=== PATIENT | male | born 1965 | race Caucasian/White ===

== ENCOUNTER 2019-06-22 10:09 | Outpatient (CLI) | payer OTHER, SELFPAY ==
--- NOTE | 2019-06-22 10:13 | CT_ITS ---
WS: [id number] CT LUNG CANCER SCREENING DLP: 101.1 mGy.cm DIvol: 2.82 mGy CLINICAL INFORMATION SCREENING VISIT: Baseline COMPARISON: None available. FINDINGS Diagnostic quality: Satisfactory Comments: None. Lung Nodules: None. Lungs: Minimal pulmonary hyperexpansion. Small amount of atelectasis adjacent to the lingula. Heart: Normal size. No vascular calcifications. Other findings: Normal size pulmonary artery. Minimal calcification in the aortic arch. No mediastina l adenopathy. Small hiatal hernia. CT/CT lung screening [id number] IMPRESSION: LUNG-RADS: 1-Negative FOLLOW UP: 12 Month: Continue annual screening with LDCT
== END 2019-06-22 10:10 | disposition home or self-care (01) ==
LOC: RAD 10:11
PROVIDERS: PCP Nurse Practitioner; Visit Provider Nurse Practitioner
DX: Z12.2 Encounter for screening for malignant neoplasm of respiratory organs (principal); Z87.891 Personal history of nicotine dependence; K44.9 Diaphragmatic hernia without obstruction or gangrene
CPT/HCPCS: G0297

== ENCOUNTER 2019-07-05 12:42 | Outpatient (CLI) | payer OTHER, SELFPAY ==
--- NOTE | 2019-07-05 13:00 | MR_ITS ---
WS: [id number] MRI LUMBAR SPINE WITH CONTRAST TECHNIQUE: Sagittal T1, T2 and STIR imaging. Axial T1 and T2 imaging. Post gadolinium imaging was obt ained. CLINICAL INFORMATION: LUMBAR BACK PAIN WITH RADICULOPATHY COMPARISON: None. FINDINGS: Mild lumbar curve. No acute compression. Disc bulging worse L5-S1. Disc bulge L5-S1 with a right pepper central protrusion. Encroachment traversing right S1 nerve root. L1-L2: Normal. L2-L3: No significant disc bulging. Mild left and no significant right foraminal narrowing. Mild face t arthropathy. L3-L4: Small right foraminal protrusion with mild right and no significant left foraminal narrowing. Mild facet arthropathy. L4-L5: Mild annular bulging with narrowing of the right subarticular recess. Mild right and no signif icant left foraminal narrowing. Mild facet arthropathy. Spinal canal is patent. L5-S1: Small right pericentral protrusion with encroachment traversing right S1 nerve root. Spinal ca nal and foramen are patent. Mild facet arthropathy. Prominent central disc protrusion seen on the gem cutter imaging at C5-6 with mild central canal stenosis. This could be followed up with cervical spine MRI. MR/MR lumbar spine wo/w con [id number] IMPRESSION: 1. Mild lumbar curve. No acute compression. No high-grade central canal stenos is. 2. Right pericentral disc protrusion L5-S1 encroaches on the traversing right S1 nerve root. Recommend correlation for right S1 nerve root symptoms. 3. Small right foraminal protrusion L3-4 with encroachment on the exiting righ t L3 nerve root. 4. Tiny left foraminal protrusion L2-3 with mild left foraminal narrowing and slight encroachment on the exiting left L2 nerve root. 5. Mild right L4-5 foraminal narrowing. 6. Mild facet arthropathy L3-L5. 7. Small central disc protrusion with mild central canal stenosis seen on the gem cutter imaging of the cervical spine at C5-6. This can be followed up with cervi gilmar spine MRI.
== END 2019-07-05 12:43 | disposition home or self-care (01) ==
LOC: RADWPI 12:47
PROVIDERS: PCP Nurse Practitioner; Visit Provider Nurse Practitioner
DX: M54.16 Radiculopathy, lumbar region (principal); M48.061 Spinal stenosis, lumbar region without neurogenic claudication; M47.896 Other spondylosis, lumbar region; M51.36 Other intervertebral disc degeneration, lumbar region; M51.27 Other intervertebral disc displacement, lumbosacral region
CPT/HCPCS: 72158; A9579

== ENCOUNTER 2021-08-18 22:00 | Emergency (ER) | payer OTHER, SELFPAY ==
--- NOTE | 2021-08-18 22:06 | XRR_ITS ---
PROCEDURE INFORMATION: Exam: XR Chest Exam date and time: 08/18/2021 11:14 PM Age: 55 years old Clinical indication: Angina; Additional info: Cp TECHNIQUE: Imaging protocol: Radiologic exam of the chest. Views: 1 view. COMPARISON: CR Chest 1 [place] [id number] 09/27/2017 7:07 AM FINDINGS: Lungs: Unremarkable. No consolidation. Pleural spaces: Unremarkable. No pleural effusion. No pneumothorax. Heart/Mediastinum: Unremarkable. No cardiomegaly. Bones/joints: Unremarkable. XR/XR chest 1V portable [id number] IMPRESSION: No acute findings.
--- NOTE | 2021-08-18 22:06 | ECG_ITS ---
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 Measurements Intervals [place] Rate: 71 P: 73 TN: 167 QRS: 60 QRSD: 90 T: 57 QT: 342 QTc: 372 Interpretive Statements SINUS RHYTHM Compared to ECG 09/27/2017 07:07:54 No significant changes Electronically Signed On 08-19-2021 17:32:42 CDT by Sudeep Pond M.D. [email or web address]/[email or web address]/NU/[id number] f
[2021-08-18 22:30] VITALS: BP 145/101; PULSE 76; RESP 17; TEMP 37; O2SAT 97; BMI 24.4
[2021-08-18 23:19] VITALS: BP 143/98; PULSE 62; RESP 19; O2SAT 98
[2021-08-18 23:22] LABS: Basophils # 0.1 10^3/uL (0.0-0.1); Eosinophils # 0.8 10^3/uL (0.0-0.8); Hematocrit 47.4 % (42.0-52.0); Hemoglobin 16.4 g/dL (11.7-16.6); Lymphocytes # 2.6 10^3/uL (0.8-4.8); Lymphocytes % 31.9 %; Mean Corpuscular HGB Conc 34.6 g/dL (30.0-36.0); Mean Corpuscular Hemoglobin 29.9 pg (28.0-34.0); Mean Corpuscular Volume 86.5 fl (80-94); Mean Platelet Volume 12.1 fL (7.4-10.4); Monocytes # 0.7 10^3/uL (0.2-0.9); Monocytes % 8.8 %; Neutrophils # 3.89 10^3/uL (1.8-7.7); Neutrophils % 48.1 %; Nucleated Red Blood Cells % 0 %; Platelet Count 197 10^3/cmm (130-400); Red Blood Count 5.48 10^6/uL (4.1-5.3); Red Cell Distribution Width 12.4 % (12.1-15.1); White Blood Count 8.1 10^3/uL (4.0-10.0)
--- NOTE | 2021-08-18 23:33 | ED_ITS ---
HPI - General Adult General: Chief complaint: General Medical Stated complaint: Chest pressure/SOB Time Seen by Provider: 08/18/21 23:01 Source: patient Mode of arrival: ambulatory Limitations: no limitations History of Present Illness: 55-year-old male states that throughout the day has been having some chest pains the center of his chest. He states it is actually more of a fluttery feeling he feels at times that he cannot get an adequate deep breath then. Denies any cough or fever. States the pain its worse with a 3 out of 10 denies any pain currently. No history of heart disease he is a former smoker. Denies any radiation of the pain when he had it. Associated symptoms: Reports chest pain and dyspnea; Deny headache(s), nausea, rash or vomiting Review of Systems Const: Denies: fever(s), chills, body aches or change in appetite Eyes: Denies: blurry vision or eye discomfort ENMT: Denies: throat pain or dental pain Card: Reports: chest pain Resp: Reports: dyspnea GI: Denies: abdominal pain, nausea, vomiting or diarrhea : Denies: dysuria Musc: Denies: neck pain or back pain Skin/Breast: Denies: rash Neuro: Denies: headache(s) Psych: Denies: depression José/Lymph: Denies: easy bruising All/Imm: Denies: urticaria PFS ED PFSH: Medical History (Updated 08/18/21 @ 23:58 by Onofre Gleason MD) Hypertension Social History (Updated 08/18/21 @ 23:34 by Onofre Gleason MD) Smoking and tobacco status: former smoker Physical Exam Const: COMMON NORMALS: no acute distress, patient oriented x3 and healthy appearing HENMT: COMMON NORMALS: normocephalic and atraumatic HEAD & SCALP: normocephalic and atraumatic Eye: COMMON NORMALS: Equal, round and reactive pupils present and EOMs intact bilaterally PUPIL: Yes Equal, round and reactive pupils present Neck/C-Spine: COMMON NORMALS: full ROM and supple Chest: COMMONS NORMALS: normal inspection of the chest and normal palpation of entire chest wall Resp: COMMON NORMALS: normal respiratory effort, No retractions, No use of accessory muscles and clear to auscultation bilaterally AUSCULTATION: clear to auscultation bilaterally Cardio: COMMON NORMALS: regular rate, regular rhythm and No murmurs present (Cardio) RATE: regular rate RHYTHM: regular rhythm GI: COMMON NORMALS: Normal to inspection, nondistended, normoactive bowel sounds present, Soft to palpation, non-tender and no masses PALPATION: Yes Soft to palpation Extremity: COMMON NORMALS: normal to inspection and full ROM Neuro: COMMON NORMALS: patient oriented x3, moves all extremities and no focal motor deficits Psych: COMMON NORMALS: mental status grossly normal, Normal thought process present and cooperative THOUGHT PROCESS: Normal thought process present Skin: COMMON NORMALS: no rashes or lesions noted and no wounds GENERAL SKIN EXAM: no rashes or lesions noted Course Vital Signs: Vital signs: Vital Signs Temperature 98.6 F 08/18/21 22:30 Pulse Rate 62 08/18/21 23:19 Respiratory Rate 19 H 08/18/21 23:19 Blood Pressure 143/98 08/18/21 23:19 Pulse Oximetry 98 08/18/21 23:19 MDM - General Adult Medical Decision Making Patient presents here with chest pain is atypical in nature he is in no pain here EKG x-ray are normal. Patient has a normal D-dimer and a normal troponin h e is stable for discharge she is to follow-up his PCP and return if worsening he understands and agrees to plan. He has no signs of acute coronary syndrome or pulm embolism. Lab Data : 08/18/21 23:17 08/18/21 23:17 Laboratory Results WBC 8.1 10^3/uL (4.0-10.0) 08/18/21 23:17 RBC 5.48 10^6/uL (4.1-5.3) H 08/18/21 23:17 Hgb 16.4 g/dL (11.7-16.6) 08/18/21 23:17 Hct 47.4 % (42.0-52.0) 08/18/21 23:17 MCV 86.5 fl (80-94) 08/18/21 23:17 MCH 29.9 pg (28.0-34.0) 08/18/21 23:17 MCHC 34.6 g/dL (30.0-36.0) 08/18/21 23:17 RDW 12.4 % (12.1-15.1) 08/18/21 23:17 Plt Count 197 10^3/cmm (130-400) 08/18/21 23:17 MPV 12.1 fL (7.4-10.4) H 08/18/21 23:17 Neut % (Auto) 48.1 % 08/18/21 23:17 Lymph % (Auto) 31.9 % 08/18/21 23:17 [place] % (Auto) 8.8 % 08/18/21 23:17 Eos % (Auto) 10.0 % 08/18/21 23:17 Baso % (Auto) 1.0 % 08/18/21 23:17 Neut # (Auto) 3.89 10^3/uL (1.8-7.7) 08/18/21 23:17 Lymph # (Auto) 2.6 10^3/uL (0.8-4.8) 08/18/21 23:17 [place] # (Auto) 0.7 10^3/uL (0.2-0.9) 08/18/21 23:17 Eos # (Auto) 0.8 10^3/uL (0.0-0.8) 08/18/21 23:17 Baso # (Auto) 0.1 10^3/uL (0.0-0.1) 08/18/21 23:17 Nucleated RBC % (auto) 0 % 08/18/21 23:17 Nucleated RBCs # 0.0 /100WBC 08/18/21 23:17 PT 13.40 SECONDS (12.1-14.9) 08/18/21 23:17 INR 0.99 (0.8-1.2) 08/18/21 23:17 D-Dimer 0.46 ug/mIFEU (0-0.59) 08/18/21 23:17 Sodium 141 mmol/L (136-145) 08/18/21 23:17 Potassium 3.8 mmol/L (3.5-5.1) 08/18/21 23:17 Chloride 103 mmol/L (98-107) 08/18/21 23:17 Carbon Dioxide 26 mmol/L (22-29) 08/18/21 23:17 Anion Gap 15.8 (5-19) 08/18/21 23:17 BUN 17 mg/dL (6-20) 08/18/21 23:17 Creatinine 1.0 mg/dL (0.7-1.2) 08/18/21 23:17 GFR Calculation 78.2 mL/min (90-130) L 08/18/21 23:17 Glucose 106 mg/dL (65-115) 08/18/21 23:17 Calculated Osmolality 294 mOsm/kg (285-295) 08/18/21 23:17 Calcium 9.0 mg/dL (8.5-10.5) 08/18/21 23:17 Total Bilirubin 0.7 mg/dL (0.15-1.2) 08/18/21 23:17 AST 19 U/L (0-40) 08/18/21 23:17 ALT 29 U/L (0-41) 08/18/21 23:17 Alkaline Phosphatase 79 IU/L (40-130) 08/18/21 23:17 Troponin T Baseline 7 ng/L (0-15) 08/18/21 23:17 NT-Pro-B Natriuret Pep 15 pg/mL (0-125) 08/18/21 23:17 Total Protein 7.4 g/dL (6.6-8.7) 08/18/21 23:17 Albumin 4.9 g/dL (3.5-5.2) 08/18/21 23:17 Globulin 2.5 g/dL (1.3-4.6) 08/18/21 23:17 EKG Data EKG 1: I personally reviewed and interpreted this EKG as follows: EKG interpretation date: 08/18/21 EKG interpretation time: 22:28 Interpretation: nsr hr [address] or t wave abnormalities qrs 90 qtc 364 Discharge Plan Discharge Patient Disposition: Home Clinical Impression: Chest pain Qualifiers: Chest pain type: unspecified Qualified Code(s): R07.9 - Chest pain, unspecified Discharge Orders: Discharge ED (Routine); Ordered 08/18/21 Ordered By: Onofre Gleason Referrals: Nathalia Vazquez FNP [Primary Care Provider] - 1-3 days Discharge Diet: Advance as tolerated Discharge Activity: Resume usual activity Patient Instructions: Chest Pain (ED) Coding Level of Care Code ED Modeling Teacher for Chg Fwd Exam Comprehensive
[2021-08-18 23:34] LABS: INR 0.99 (0.8-1.2)
[2021-08-18 23:36] LABS: D Dimer 0.46 ug/mIFEU (0-0.59)
[2021-08-18 23:40] LABS: Troponin(5th) Baseline 7 ng/L (0-15)
[2021-08-18 23:42] LABS: Alanine Aminotransferase 29 U/L (0-41); Albumin Level 4.9 g/dL (3.5-5.2); Alkaline Phosphatase 79 IU/L (40-130); Anion Gap 15.8 (5-19); Aspartate Amino Transferase 19 U/L (0-40); Blood Urea Nitrogen 17 mg/dL (6-20); Carbon Dioxide 26 mmol/L (22-29); Chloride 103 mmol/L (98-107); Globulin 2.5 g/dL (1.3-4.6); Glomerular Filtration Rate 78.2 mL/min (90-130); Glucose 106 mg/dL (65-115); Osmolality Calculated 294 mOsm/kg (285-295); Potassium 3.8 mmol/L (3.5-5.1); Sodium 141 mmol/L (136-145); Total Bilirubin 0.7 mg/dL (0.15-1.2); Total Protein 7.4 g/dL (6.6-8.7)
[2021-08-18 23:45] VITALS: BP 119/94; PULSE 58; RESP 16; O2SAT 96
[2021-08-18 23:49] LABS: NT Pro B Type Natriuretic Pept 15 pg/mL (0-125)
== END 2021-08-19 00:24 | disposition home or self-care (01) ==
PROVIDERS: Emergency Provider Emergency Medicine; PCP Nurse Practitioner
DX: R07.9 Chest pain, unspecified (principal); I10 Essential (primary) hypertension
CPT/HCPCS: 71045; 80053; 83880; 84484; 85025; 85378; 85610; 93005; 99285

== ENCOUNTER 2022-04-27 08:57 | Emergency (ER) | payer OTHER, SELFPAY ==
[2022-04-27 09:02] VITALS: BP 166/72; PULSE 68; RESP 16; TEMP 36.7; O2SAT 95; BMI 25.7
--- NOTE | 2022-04-27 09:03 | ECG_ITS ---
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 Measurements Intervals [place] Rate: 59 P: 68 MD: 187 QRS: 67 QRSD: 89 T: 64 QT: 372 QTc: 369 Interpretive Statements SINUS BRADYCARDIA Compared to ECG 08/18/2021 22:28:43 Sinus rhythm no longer present Electronically Signed On 04-27-2022 16:01:50 CDT by Sudeep Pond M.D. [id number]
--- NOTE | 2022-04-27 09:19 | W.ED.ABDPA2 ---
HPI - Abdominal Pain General: Chief Complaint: Abdominal Pain Stated Complaint: left abd pain Time Seen by Provider: 04/27/22 09:03 Source: patient Mode of arrival: ambulatory History of Present Illness: 56-year-old male presents to the emergency room with complaints of left flank pain. He previously had a left nephrolithiasis he tells me it was 6 mm she was seen at an outside facility. It was thought to have passed to the bladder he does not think he ever passed from a bladder out. He has been able to urinate without any difficulty has not noticed any luana hematuria. He denies any fever sweats chills dysuria urgency or frequency. MD elicited complaint: flank pain Pertinent past history: kidney stones Location: L flank Severity: mild Quality: sharp Radiation: other (groin) Exacerbating factors: nothing Relieving factors: nothing Associated Symptoms: Denies anorexia, belching, bloating, change in bowel habits, change in stool character, chills, coffee ground emesis, constipation, GI cramping, diarrhea, dyspepsia, dysuria, excessive flatus, fever(s), heartburn, hematochezia, hematuria, hematemesis, fecal incontinence, loose stools, melena, nausea, poor appetite, syncope and vomiting Review of Systems Const: Denies: fever(s) or chills Card: Denies: syncope GI: Denies: nausea, vomiting, hematemesis, coffee ground emesis, heartburn, diarrhea, constipation, bloating, GI cramping, belching, excessive flatus, fecal incontinence, change in bowel habits, change in stool character, hematochezia or melena : Denies: dysuria or hematuria [facility] ED PFSH: Medical History (Updated 04/27/22 @ 11:06 by Maciej Rees DO) Hypertension Nephrolithiasis Social History Smoking and tobacco status: former smoker Physical Exam Const: COMMON NORMALS: no acute distress GENERAL APPEARANCE: cooperative and comfortable ORIENTATION/CONSCIOUSNESS: Yes awake, Yes oriented to person, Yes oriented to place and Yes oriented to time HENMT: COMMON NORMALS: normocephalic, atraumatic and hearing grossly normal bilaterally HEAD & SCALP: normocephalic and atraumatic Resp: COMMON NORMALS: normal respiratory effort, No retractions, No use of accessory muscles and clear to auscultation bilaterally AUSCULTATION: clear to auscultation bilaterally Cardio: COMMON NORMALS: regular rate, regular rhythm and No murmurs present (Cardio) RATE: regular rate RHYTHM: regular rhythm GI: COMMON NORMALS: Soft to palpation and No hepatosplenomegaly present AUSCULTATION: Yes normoactive bowel sounds PALPATION: Yes Soft to palpation, No Tenderness to palpation present (GI), No Guarding due to palpation present (GI) and Yes No hepatosplenomegaly present Extremity: COMMON NORMALS: normal to inspection, capillary refill normal, no clubbing, cyanosis or edema, no calf tenderness and no pedal edema Neuro: SENSORIUM/ORIENTATION: Yes oriented to person, Yes oriented to place and Yes oriented to time Skin: COMMON NORMALS: no rashes or lesions noted GENERAL SKIN EXAM: no rashes or lesions noted Course Vital Signs: Vital signs: Vital Signs Temperature 98.0 F 04/27/22 09:02 Pulse Rate 61 04/27/22 10:35 Respiratory Rate 16 04/27/22 10:35 Blood Pressure 122/93 04/27/22 10:35 Pulse Oximetry 95 04/27/22 10:35 Oxygen Delivery Me thod 04/27/22 10:35 MDM - Abdominal Pain Medical Decision Making 6 mm left UVJ stone. Patient's pain is well controlled we will discharge home on tamsulosin and strain urine hydrocodone and will arrange for follow-up with urology through case management. Return if pain becomes uncontrolled other labs reviewed and imaging reviewed. Discussed with the patient. Medical Records I reviewed the patient's medical records. Lab Data I reviewed the patient's lab results. 04/27/22 09:27 04/27/22 09:27 Labs/Radiology: Radiology Impressions Abdomen/Pelvis CT 04/27/22 10:04 IMPRESSION: 1. 6 mm obstructive stone in the distal left ureter just above the ureterovesical junction producing moderate hydronephrosis. 2. Solitary nonobstructive stone in the right kidney. Laboratory Results WBC 7.1 10^3/uL (4.0-10.0) 04/27/22 09:27 RBC 5.18 10^6/uL (4.1-5.3) 04/27/22 09:27 Hgb 15.5 g/dL (11.7-16.6) 04/27/22 09: Hct 46.7 % (42.0-52.0) 04/27/22: MCV 90.2 fl (80-94) 04/27/22 09: MCH 29.9 pg (28.0-34.0) 04/27/22: MCHC 33.2 g/dL (30.0-36.0) 04/27/22: RDW 12.5 % (12.1-15.1) 04/27/22 09: Plt Count 177 10^3/cmm (130-400) 04/27/22: MPV 12.0 fL (7.4-10.4) H 04/27/22: Neut % (Auto) 50.7 % 04/27/22: Lymph % (Auto) 29.7 % 04/27/22: [place] % (Auto) 9.2 % 04/27/22: Eos % (Auto) 9.3 % 04/27/22 09: Baso % (Auto) 0.8 % 04/27/22: Neut # (Auto) 3.60 10^3/uL (1.8-7.7) 04/27/22: Lymph # (Auto) 2.1 10^3/uL (0.8-4.8) 04/27/22: [place] # (Auto) 0.7 10^3/uL (0.2-0.9) 04/27/22: Eos # (Auto) 0.7 10^3/uL (0.0-0.8) 04/27/22: Baso # (Auto) 0.1 10^3/uL (0.0-0.1) 04/27/22: Nucleated RBC % (auto) 0 % 04/27/22: Nucleated RBCs # 0.0 /100WBC 04/27/22 09: Sodium 140 mmol/L (136-145) 04/27/22 09: Potassium 4.2 mmol/L (3.5-5.1) 04/27/22: Chloride 106 mmol/L (98-107) 04/27/22 09:27 Carbon Dioxide 25 mmol/L (22-29) 04/27/22 09:27 Anion Gap 13.2 (5-19) 04/27/22 09:27 BUN 17 mg/dL (6-20) 04/27/22 09:27 Creatinine 1.2 mg/dL (0.7-1.2) 04/27/22 09:27 GFR Calculation 63.1 mL/min (90-130) L 04/27/22 09: Glucose 109 mg/dL (65-115) 04/27/22 09:27 Calculated Osmolality 292 mOsm/kg (285-295) 04/27/22 09: Calcium 8.9 mg/dL (8.5-10.5) 04/27/22 09: Total Bilirubin 1.0 mg/dL (0.15-1.2) 04/27/22 09: AST 22 U/L (0-40) 04/27/22 09: ALT 27 U/L (0-41) 04/27/22 09: Alkaline Phosphatase 61 U/L (40-130) 04/27/22 09:27 Total Protein 6.6 g/dL (6.6-8.7) 04/27/22 09: Albumin 4.2 g/dL (3.5-5.2) 04/27/22 09: Globulin 2.4 g/dL (1.3-4.6) 04/27/22 09:27 Lipase 38 U/L (13-60) 04/27/22 09:27 Urine Color Dark yellow (Yellow) 04/27/22 10:31 Urine Appearance Clear (CLEAR) 04/27/22 10:31 Urine pH 5 (5-7) 04/27/22 10:31 Ur Specific Pearson 1.025 (1.005-1.030) 04/27/22 10:31 Urine Protein Neg (Negative) 04/27/22 10:31 Urine Glucose (UA) Norm (Normal) 04/27/22 10:31 Urine Ketones 1+ (Negative) H 04/27/22 10:31 Urine Blood 3+ (Negative) H 04/27/22 10:31 Urine Nitrate Negative (Negative) 04/27/22 10:31 Urine Bilirubin Neg (Negative) 04/27/22 10:31 Urine Urobilinogen Norm mg/dL (Negative) 04/27/22 10:31 Ur Leukocyte Esterase Negative (Negative) 04/27/22 10:31 Urine RBC 15-25 /hpf (0-2) H 04/27/22 10:31 Urine WBC 0-4 /hpf (0-5) H 04/27/22 10:31 Ur Squamous Epith Cells None /hpf (0-5) 04/27/22 10:31 Amorphous Sediment Not Reportable 04/27/22 10:31 Urine Bacteria Trace /hpf (NONE) 04/27/22 10:31 Urine Mucus 1+ /hpf 04/27/22 10:31 Discharge Plan Discharge Patient Disposition: Home Clinical Impression: Nephrolithiasis, Hypertension Condition: Stable Prescriptions: New Flomax 0.4 mg capsule 0.4 mg PO DAILY Qty: 20 0RF hydrocodone-acetaminophen 5-325 mg tablet 1 tab PO Q6H PRN (Reason: pain) Qty: 20 0RF Discharge Orders: Discharge ED (Routine); Ordered 04/27/22 Ordered By: Maciej Rees Referrals: Nathalia Vazquez FNP [Primary Care Provider] - Discharge Diet: Usual diet Discharge Activity: Increase activity as tolerated Patient Instructions: Opioid Safety, Pain Management Activity Restrictions/Additional Instructions: You are seen today for left flank pain you have a 6 mm ureteral strong stone that has not yet passed into the bladder it is at the verge of passing at this point. Recommend he start tamsulosin 0.4 mg daily you are given a prescription for hydrocodone for pain strain your urine. Case management make arrangements for you to follow-up with urology. If pain is not controlled return to the emergency room. Coding Level of Care Code ED 3Rd Mate for Chirag Dumont
[2022-04-27 09:30] VITALS: BP 166/72; PULSE 66; RESP 16; O2SAT 92
[2022-04-27 09:35] LABS: Basophils # 0.1 10^3/uL (0.0-0.1); Basophils % 0.8 %; Eosinophils # 0.7 10^3/uL (0.0-0.8); Eosinophils % 9.3 %; Hematocrit 46.7 % (42.0-52.0); Hemoglobin 15.5 g/dL (11.7-16.6); Lymphocytes # 2.1 10^3/uL (0.8-4.8); Lymphocytes % 29.7 %; Mean Corpuscular HGB Conc 33.2 g/dL (30.0-36.0); Mean Corpuscular Hemoglobin 29.9 pg (28.0-34.0); Mean Corpuscular Volume 90.2 fl (80-94); Monocytes # 0.7 10^3/uL (0.2-0.9); Monocytes % 9.2 %; Neutrophils % 50.7 %; Nucleated Red Blood Cells % 0 %; Platelet Count 177 10^3/cmm (130-400); Red Blood Count 5.18 10^6/uL (4.1-5.3); Red Cell Distribution Width 12.5 % (12.1-15.1); White Blood Count 7.1 10^3/uL (4.0-10.0)
[2022-04-27 09:40] VITALS: BP 159/98; PULSE 62; RESP 16; O2SAT 98
[2022-04-27 09:57] LABS: Alanine Aminotransferase 27 U/L (0-41); Albumin Level 4.2 g/dL (3.5-5.2); Alkaline Phosphatase 61 U/L (40-130); Anion Gap 13.2 (5-19); Aspartate Amino Transferase 22 U/L (0-40); Blood Urea Nitrogen 17 mg/dL (6-20); Calcium 8.9 mg/dL (8.5-10.5); Carbon Dioxide 25 mmol/L (22-29); Chloride 106 mmol/L (98-107); Globulin 2.4 g/dL (1.3-4.6); Glomerular Filtration Rate 63.1 mL/min (90-130); Glucose 109 mg/dL (65-115); Lipase 38 U/L (13-60); Osmolality Calculated 292 mOsm/kg (285-295); Potassium 4.2 mmol/L (3.5-5.1); Sodium 140 mmol/L (136-145); Total Protein 6.6 g/dL (6.6-8.7)
--- NOTE | 2022-04-27 10:04 | CTR_ITS ---
PROCEDURE INFORMATION: Exam: CT Abdomen And Pelvis Without Contrast Exam date and time: 04/27/2022 10:34 AM Age: 56 years old Clinical indication: Abdominal pain; Flank; Left; Additional info: Flank pain TECHNIQUE: Imaging protocol: Computed tomography of the abdomen and pelvis without contrast. Radiation optimization: All CT scans at this facility use at least one of these dose optimization techniques: automated exposure control; mA and/or kV adjustment per patient size (includes targeted exams where dose is matched to clinical indication); or iterative reconstruction. REPORTING DATA: Count of CT and Cardiac NM exams in prior 12 months: This patient has received 0 known CTs and 0 known cardiac nuclear medicine studies in the 12 months prior to the current study. COMPARISON: CR XR sacrum coccyx min 2V [id number] 09/15/2018 11:22 AM RADIATION DOSE METRICS: Total DLP (mGy-cm): 585.57 FINDINGS: Lungs: Lung bases are clear. Liver: The liver is normal. Gallbladder and bile ducts: The gallbladder is normal. There is no biliary dilation. Pancreas: The pancreas is unremarkable. Spleen: The spleen is unremarkable. Adrenal glands: The adrenal glands are unremarkable. Kidneys and ureters: Mild left renal enlargement and perinephric edema. Mild left hydronephrosis and diffuse hydroureter to the level of a distal ureteral stone measuring 6 x 6 x 5 mm on axial series 3, image 187. No intrarenal stones on the left. There is a tiny nonobstructive stone in the right kidney. No hydronephrosis or ureteral dilation on the right. Stomach and bowel: The stomach is decompressed, preventing meaningful evaluation of wall thickness. The small bowel is nondilated. The colon is unremarkable. Appendix: The appendix is normal. Intraperitoneal space: There is no free air or significant intraperitoneal free fluid. Vasculature: There is moderate aortic atherosclerotic disease. Lymph nodes: There is no lymphadenopathy in the retroperitoneum, mesentery, pelvis or inguinal regions. Urinary bladder: The urinary bladder is decompressed, preventing meaningful evaluation of wall thickness. Reproductive: The prostate and seminal vesicles are unremarkable. Bones/joints: There is mild degenerative disease in the lumbar spine. The pelvis and hips are unremarkable. Soft tissues: The abdominal wall is intact. CT/CT kidney stone [id number] IMPRESSION: 1. 6 mm obstructive stone in the distal left ureter just above the ureterovesical junction producing moderate hydronephrosis. 2. Solitary nonobstructive stone in the right kidney.
[2022-04-27 10:35] VITALS: BP 122/93; PULSE 61; RESP 16; O2SAT 95
[2022-04-27 11:10] LABS: Add Urine Microscopic? YES; Bilirubin Urine Neg (Negative); Blood Urine 3+ (Negative); Glucose Urine UA Norm (Normal); Ketones Urine 1+ (Negative); Leukocyte Esterase Urine Negative (Negative); Nitrate Urine Negative (Negative); Protein Urine Neg (Negative); Specific Gravity, Urine 1.025 (1.005-1.030); Urine Appearance Clear (CLEAR); Urine Color Dark Yellow (Yellow); Urobilinogen Urine Norm (Negative); pH Urine 5 (5-7)
[2022-04-27 11:11] LABS: Bacteria Urine TRACE /hpf; Mucus Urine 1+ /hpf; RBC Urine 15-25 /hpf (0-2); WBC Urine 0-4 /hpf (0-5)
[2022-04-27 11:12] LABS: Add Urine Culture? Yes
== END 2022-04-27 11:27 | disposition home or self-care (01) ==
PROVIDERS: Emergency Provider Family Medicine; PCP Nurse Practitioner
DX: N13.2 Hydronephrosis with renal and ureteral calculous obstruction (principal); I10 Essential (primary) hypertension; Z87.891 Personal history of nicotine dependence
CPT/HCPCS: 36415; 74176; 80053; 81001; 83690; 85025; 87086; 93005; 99285